=== PATIENT | female | born 1965 | race Caucasian/White ===

== ENCOUNTER 2023-07-02 16:50 | Emergency (ER) | payer OTHER, SELFPAY ==
[2023-07-02] VITALS (7 sets, daily range): BP systolic 109–150; BP diastolic 58–74; PULSE 62–78; RESP 15–24; TEMP 36.1; O2SAT 95–100
--- NOTE | ~2023-07-02 | CT_ITS ---
Clinical Indication: Chest pain CT Scan of the Chest with Contrast: Technique: Contiguous sections were acquired throughout the chest after intravenous administration of 100 cc of Omnipaque 350. Dose reduction technique was used on this scan by utilizing automated expos ure control and iterative reconstruction technique. The dose-length product (DLP) was 1022.27 mGy-cm. Findings: There is no evidence of any significant mediastinal, hilar or axillary lymphadenopathy. No large cent ral pulmonary embolus seen. Evaluation for smaller, more peripheral pulmonary emboli is suboptimal du e to timing of the contrast bolus. There is no evidence of aortic dissection or aneurysm. There is no evidence of pleural or pericardial effusion. The lungs are clear. No pulmonary nodules or infiltrates are noted. Images through the upper abdomen reveal no abnormalities. Impression: No large central pulmonary embolus. Evaluation for smaller, more peripheral pulmonary emboli is subop timal due to timing of the contrast bolus. Clear lungs. Reviewed, dictated and finalized at [facility]. Impression: No large central pulmonary embolus. Evaluation for smaller, more peripheral pul monary emboli is suboptimal due to timing of the contrast bolus. Clear lungs.
--- NOTE | 2023-07-02 17:47 | ECG_ITS ---
Measurements Intervals [place] Rate: 61 P: -16 MD: 122 QRS: -27 QRSD: 85 T: -30 QT: 391 QTc: 397 Interpretive Statements SINUS RHYTHM DELAYED PRECORDIAL R/S TRANSITION LOW QRS VOLTAGE IN PRECORDIAL LEADS BORDERLINE T WAVE ABNORMALITY- ANTEROLAT/INF LEADS BORDERLINE ECG NO PREVIOUS ECG AVAILABLE FOR COMPARISON Electronically Signed On 07-03-2023 7:11:39 CDT by Parag Cancino D.O.
--- NOTE | 2023-07-02 17:50 | ED.GENADULT ---
HPI - General Adult General Chief complaint: Unspecified Stated complaint: R SIDE PAIN BODY PAIN Time Seen by Provider: 07/02/23 17:25 History of Present Illness HPI narrative: 58-year-old female with a history of hypertension, hyperlipidemia, TIA reports for evaluation for right chest wall and right-sided upper back pain after she sat up from a leaning position while washing her dishes in the bathtub. She has had pain in this area since. She reports the pain is a pulling sensation and feels like she pulled a muscle. Reports it is worse with walking, movement of her right arm and deep inspiration. The pain does not radiate anywhere, no associated nausea or diaphoresis she also has multiple pruritic bites all over her body. She states she is currently living at a hotel after her apartment collapsed approximately 1 month ago. States she stayed at her friend's house for a little bit his dog had fleas. She states the bites are improving and she has not noticed any new bites in the past few days. Denies fever, cough or congestion, shortness of breath, abdominal pain, nausea or vomiting, loss of bowel or bladder control or retention, saddle anesthesia, dysuria or hematuria. Related Data Allergies Allergy/AdvReac Type Severity Reaction Status Date / Time Sulfa (Sulfonamide Allergy Unknown Hives / Verified 01/23/16 13:52 Antibiotics) Red Face Review of Systems Review of Systems: CONSTITUTIONAL: Denies fever, chills EYES: Denies visual changes, redness, or discharge. ENT: Denies rhinorrhea, congestion, sore throat, or otalgia. CARDIOVASCULAR: See HPI RESPIRATORY: Denies cough or dyspnea. GASTROINTESTINAL: Denies abdominal pain, nausea, vomiting, or diarrhea. GENITOURINARY: Denies dysuria or hematuria. SKIN: See HPI MUSCULOSKELETAL: See HPI NEUROLOGIC: Denies headache, numbness, dizziness, or weakness. PSYCHIATRIC: Denies anxiety or depression. Exam Narrative: GENERAL: Well-appearing, in no acute distress. Patient resting comfortably in exam bed. She is pleasant and conversational. HEAD: Normocephalic NECK: Supple. No midline cervical spinous tenderness, step-offs or deformities. BACK: No thoraco lumbar spinous tenderness, step-offs or deformities. Tenderness to the right posterior chest wall extending inferior to the axilla and to the anterior chest wall. No overlying skin changes, ecchymosis or crepitus. CHEST: No respiratory distress. Clear to auscultation, no adventitious breath sounds. See back exam. HEART: Regular rate and rhythm. No murmur heard. Normal peripheral pulses. ABDOMEN: Soft, nontender, normal active bowel sounds. EXTREMITIES: Normal range of motion. No edema. No calf tenderness. Negative Homans. SKIN: Multiple circular hemorrhagic lesions with central punctum throughout upper and lower extremities and different healing stages excoriations, consistent with bedbug bites. NEURO: No focal deficits. Alert and oriented x3. No gross cranial nerve deficits. BUE and BLE strength 5 out of 5. Sensation intact throughout. PSYCH: Normal mood and affect. Course Vital Signs Vital signs: Vital Signs Temperature 97 F L 07/02/23 17:06 Pulse Rate 78 07/02/23 17:06 Respiratory Rate 20 07/02/23 17:06 Blood Pressure 109/58 L 07/02/23 17:06 Pulse Oximetry 97 07/02/23 17:06 Oxygen Delivery Room Air 07/02/23 17:06 Temperature 97 F L 07/02/23 17:06 Pulse Rate 66 07/02/23 20:08 Respiratory Rate 15 07/02/23 20:08 Blood Pressure 150/74 H 07/02/23 20:25 Pulse Oximetry 97 07/02/23 20:08 Oxygen Delivery Room Air 07/02/23 17:06 Medical Decision Making [facility] Narrative Medical decision making narrative: 58-year-old female with a history of hypertension, hyperlipidemia, TIA reports for evaluation for right chest wall and right-sided upper back pain after she sat up from a leaning position while washing her dishes in the bathtub. The pain is worse with palpation, movement and deep inspi
[2023-07-02 18:12] LABS: Basophils Percent Auto 0.3 % (0.2-1.2); Eosinophils Absolute Auto 0.2 K/mm3 (0-0.3); Eosinophils Percent Auto 2.1 % (0-4.4); Hematocrit 39.9 % (37.0-47.0); Hemoglobin 13.1 g/dL (12.0-15.0); Immature Granulocyte Absolute 0.02 K/mm3 (0.00-0.031); Immature Granulocyte Percent A 0.3 % (0-0.5); Lymphocytes Absolute Auto 2.38 K/mm3 (0.9-3.2); Lymphocytes Percent Auto 33.6 % (18.3-44.2); Mean Corpuscular HGB Conc 32.8 g/dl (32-36); Mean Corpuscular Hemoglobin 31.2 pg (26-34); Mean Platelet Volume 10.9 fl (7.4-10.4); Monocytes Absolute Auto 0.6 K/mm3 (0.1-0.6); Monocytes Percent Auto 8.2 % (2.6-8.5); Neutrophils Absolute Auto 3.9 K/mm3 (1.3-6.7); Neutrophils Percent Auto 55.5 % (45.5-73.1); Platelet Count Result 273 k/mm3 (150-375); Red Cell Distribution Width 13.4 % (11.5-14.5); White Blood Count 7.1 K/mm3 (4.5-10.0)
[2023-07-02 18:28] LABS: D Dimer 1.92 ug/mL (<0.48)
[2023-07-02 18:43] LABS: Alanine Aminotransferase 20 U/L (6-35); Albumin Level 4.3 g/dL (3.5-5.1); Alkaline Phosphatase 138 U/L (38-126); Anion Gap 9 mmol/L (8-16); Aspartate Amino Transferase 32 U/L (14-36); Bilirubin,Total 0.7 mg/dL (0.2-1.3); Blood Urea Nitrogen 15 mg/dL (7-17); Calcium 10.6 mg/dL (8.4-10.2); Carbon Dioxide 28 mmol/L (22-30); Chloride 99 mmol/L (98-107); Estimated CRCL calculation 72 ml/min; Estimated Glomerular Filt Rate 51; Glucose 109 mg/dL (65-110); Sodium 136 mmol/L (137-145)
[2023-07-02] MEDS: IBUPROFEN 600 MG TABLET PO (18:54)
[2023-07-02] MEDS: CYCLOBENZAPRINE HCL 10 MG TABLET PO (18:54)
[2023-07-02 19:01] LABS: Troponin I < 0.012 ng/mL (0.000-0.034)
[2023-07-02] MEDS: SODIUM CHLORIDE 0.9% IV 1,000 ML 999 ML IV CONT (19:26)
[2023-07-02 20:06] LABS: NT Pro B Type Natriuretic Pept 123 pg/mL (19.9-100)
== END 2023-07-02 20:52 | disposition home or self-care (01) ==
PROVIDERS: Emergency Provider Physician Assistant; PCP Nurse Practitioner Family
DX: S29.011A Strain of muscle and tendon of front wall of thorax, initial encounter (principal); S80.862A Insect bite (nonvenomous), left lower leg, initial encounter; S80.861A Insect bite (nonvenomous), right lower leg, initial encounter; S40.862A Insect bite (nonvenomous) of left upper arm, initial encounter; S40.861A Insect bite (nonvenomous) of right upper arm, initial encounter; E78.5 Hyperlipidemia, unspecified; I10 Essential (primary) hypertension; Z86.73 Personal history of transient ischemic attack (TIA), and cerebral infarction without residual deficits; W57.XXXA Bitten or stung by nonvenomous insect and other nonvenomous arthropods, initial encounter; X50.0XXA Overexertion from strenuous movement or load, initial encounter
CPT/HCPCS: 36415; 71275; 80053; 83880; 84484; 85025; 85380; 93005; 96360; 99284; A9270; J7030; Q9967